=== PATIENT | male | born 1980 | race Caucasian/White ===

== ENCOUNTER 2017-02-08 16:49 | Emergency (ER) | payer OTHER ==
[2017-02-08 17:12] VITALS: BP 130/76; PULSE 72; RESP 18; TEMP 98.4; O2SAT 97
[2017-02-08 17:41] LABS: COLOR YELLOW; LEUKOCYTE ESTERASE,URINE NEGATIVE (NEGATIVE); NITRITE,URINE NEGATIVE (NEGATIVE)
--- NOTE | 2017-02-08 18:06 | UCPHY ---
H & P Time Seen by Provider: 02/08/17 17:27 Patient Type: New HPI/ROS: This patient complains of bilateral flank pain left more than right describes a dull ache in nature waxing waning in intensity a slight full feeling in his low back. He has had the symptoms for 3 weeks. He initially was evaluated by Dr. Jacob-family practitioner and had a negative H pylori, normal CBC, normal comp metabolic panel, normal TSH and normal urinalysis. He reports concerned because he became more fatigued over the past 2 days as well and came in for further evaluation. His family practitioner felt that the symptoms were musculoskeletal in origin. He also saw a chiropractor but in feel much relief after adjustment of his low back. ROS: No fevers or chills. HEENT: No complaints. Pulmonary: No chest pain or shortness of breath. No coughing. Cardiovascular: No lightheadedness. No other complaints. GI: No nausea vomiting. Neuro: No numbness tingling or focal weakness. No bowel or bladder incontinence. 10 point ROS is otherwise negative. Past Medical/Surgical History: I reviewed the labs from his primary care physician which includes a normal CBC , normal comp metabolic panel, normal TSH and normal urinalysis. Social History: Occasional alcohol. No drug use. He is . He is monogamous no STD risk factors. Smoking Status: Never smoked Physical Exam: General Appearance: Alert, no distress. Eyes: Pupils equal and round no pallor or injection. ENT, Mouth: Mucous membranes moist. Respiratory: There are no retractions, lungs are clear to auscultation. Cardiovascular: Regular rate and rhythm. Gastrointestinal: Abdomen is soft and nontender, no masses, bowel sounds normal. Neurological: Alert. No light touch sensory or motor deficits in upper lower extremities. She maintains 5/5 strength in great toe dorsiflexion plantar flexion bilaterally. 2+ symmetric patellar and Achilles DTRs bilaterally. Back: No midline tenderness. He has mild paraspinous lumbar tenderness and muscle spasm. Despite this retains good range of motion in forward flexion with mild increase in discomfort to that side with lateral flexion away from the affected side. Straight leg raise is negative bilaterally. Skin: Warm and dry, no rashes. Musculoskeletal: Neck is supple nontender. Extremities are symmetrical, full range of motion. Psychiatric: Patient is mildly anxious. Otherwise mood and affect are normal DIFFERENTIAL DIAGNOSIS: After history and physical exam differential diagnosis was considered for given thorough previous workup and clinical findings, findings are consistent with low back strain/pain. I doubt disc herniation. No radicular symptoms. UTI, Constitutional: Initial Vital Signs Temperature (C) 36.9 C 02/08/17 17:08 Heart Rate 72 02/08/17 17:08 Respiratory Rate 18 02/08/17 17:08 Blood Pressure 130/76 H 02/08/17 17:08 O2 Sat (%) 97 02/08/17 17:08 O2 Delivery Mode Room Air Allergies/Adverse Reactions: No Known Allergies Allergy (Unverified 02/08/17 17:07) Home Medications: Medication Instructions Recorded Methocarbamol [Robaxin 750 mg (*)] 750 - 1,500 mg PO QID PRN #30 tab 02/08/17 MDM/Departure - MDM Diagnostics: Urinalysis is normal ED Course/Re-evaluation: Given previous normal workup in clinical findings, findings are consistent currently with low back strain. It he is a very benign exam currently. I counseled regarding low back strain. - Depart Disposition: Home, Routine, Self-Care Clinical Impression: Low back pain Qualifiers: Chronicity: acute Back pain laterality: left Sciatica presence: without sciatica Qualified Code(s): M54.5 - Low back pain Condition: Good Instructions: Acute Low Back Pain (ED) Additional Instructions: DX: Low back strain Plan: Ibuprofen 400-600 mg per 6 hours regularly for the next week then as needed. Methocarbamol muscle relaxants as needed. Tylenol in addition as needed for pain. Starts daily stretches prior to taking muscle relaxants in the morning. 3-5 minutes each of: "Butterfly stretch," "Sphinx stretch", "pigeon stretch", and hamstring stretch. Avoid lifting more than 5-10 pounds until symptoms improve. Call your primary care physician for a followup appointment in 3-7 days. Go to the emergency department for worsening of your symptoms despite the treatment plan. Prescriptions: Methocarbamol [Robaxin 750 mg (*)] 750 - 1,500 mg PO QID PRN #30 tab PRN Reason: Muscle Spasms Referrals: FEDERICO JACOB MD [Other] - As per Instructions - PQRS PQRS Measurement: NA
== END 2017-02-08 18:17 | disposition home or self-care (01) ==
LOC: CED 16:49
DX: M54.5 Low back pain (principal)
CPT/HCPCS: 81003-PO; 99203-PO; G0463-PO